=== PATIENT | female | born 1955 | race Caucasian/White ===

== ENCOUNTER 2020-06-01 09:04 | Observation (INO) | payer MEDICARE ==
[~2020-06-01] VITALS: Ht 160 cm; Wt 77.1 kg
[2020-06-01 12:02] LABS: HEMOGLOBIN 15.7 gm/dl (12.3-15.3); RED BLOOD COUNT 4.94 M/UL (4.00-5.10); WHITE BLOOD COUNT 11.8 K/UL (4.5-11.0)
[2020-06-01 12:14] LABS: BUN/CREATININE RATIO 48 (0-10)
--- NOTE | 2020-06-01 19:13 | NUR ---
PT TO ROOM 5117 VIA STRETCHER FROM SURGERY. dR. Villatoro REMOVED A PIECE OF CHICKEN FROM HER THROAT. DIPROVAN WAS USED FOR SEDATION. PT PLACE IN ROOM 5117 UNTIL RECOVERY. O2 SAT 95% HR 92 B/P 130/63. STATES SHE IS IN NO PAIN,AT THIS TIME. GAG REFLEX IS INTACT, PT GIVEN WATER AN CLEAR LIQUIDS. PT TO BE DISCHARGED IN ONE HOUR. PT DISCHARGED TO HOME IV REMOVED CATH INTACT NO REDNESS WARMTH OR EDEMA NOTED. PT DRIKING WELL NO SIGNS OF ASPIRATION OR COUGH WHEN DRINKING. DRY COUGH NOTED AT OTHER TIME. STATES HER THROAT IS SORE, NO SIGNS OF BLEEDING AT THIS TIME PT IS DISCHARGED HOME AT [address]
== END 2020-06-01 16:07 | disposition home or self-care (01) ==
LOC: ER1 09:04 → CDU 14:06 → MED SURG 4 14:13 → CDU 14:14 → M/S 15:15
PROVIDERS: Physician Assistant; ADMIT Surgery
PROC: 0DC38ZZ Extirpation of Matter from Lower Esophagus, Via Natural or Artificial Opening Endoscopic (ICD-10-PCS; principal; 2020-06-01 13:57)
DX: T18.128A Food in esophagus causing other injury, initial encounter (principal); K44.9 Diaphragmatic hernia without obstruction or gangrene; K21.00 Gastro-esophageal reflux disease with esophagitis, without bleeding; E86.0 Dehydration; I10 Essential (primary) hypertension; Z91.041 Radiographic dye allergy status; Z20.822 Contact with and (suspected) exposure to COVID-19; X58.XXXA Exposure to other specified factors, initial encounter
CPT/HCPCS: 71046; 80048; 85025; 87635; 96374; 99284; G0378; J1720; J2405; J2704; J7030